=== PATIENT | male | born 1950 | race Caucasian/White ===

== ENCOUNTER → 2019-03-11 | Outpatient (CLI) | payer OTHER ==
--- NOTE | 2019-03-11 15:21 | 2DMMODE ---
[address] [address] D/M-MODE ECHOCARDIOGRAM Name: JULITA TURCIOS RAMSES Room #: REG [facility]#: [id number] Admission: 03/11/19 Attend Phys: Ken Molina MD Discharge: Date of : 46 Report #: [id number] THIS REPORT FOR: //name// APPROVED REPORT Study performed: 03/11/2019 14:18:52 EXAM: Comprehensive 2D, Doppler, and color-flow Echocardiogram Patient Location: Out-Patient Room #: Echo lab 2 Status: routine BSA: 2.21 HR: 69 bpm BP: 126/76 mmHg Rhythm: NSR Other Information Study Quality: Good Indications CAD 2D Dimensions IVC: 18.00 mm Volumes Left Atrial Volume (Systole) LA ESV Index: 30.00 mL/m2 Tricuspid Valve PA Pressure: 32.00 mmHg Left Ventricle The left ventricle is normal size. There is normal LV segmental wall motion. There is normal left ventricular wall thickness. Left ventricular systolic function is low-normal. LVEF is 50-55%. Grade I - abnormal relaxation pattern. Right Ventricle The right ventricle is normal size. The right ventricular systolic function is normal. Atria The left atrium size is normal. The right atrium size is normal. [address] [address] 2 D/M-MODE ECHOCARDIOGRAM Name: JULITA TURCIOS Room #: REG [facility]#: [id number] Admission: 03/11/19 Attend Phys: Ken Molina MD Discharge: Date of : 46 Report #: [id number] Aortic Valve The Aortic valve is sclerotic. No aortic regurgitation is present. There is no aortic valvular stenosis. Mitral Valve The mitral valve is normal in structure. Mild mitral regurgitation. No evidence of mitral valve stenosis. Tricuspid Valve The tricuspid valve is normal in structure. There is mild tricuspid regurgitation. Estimated PAP 32 mmHg. There is mild pulmonary hypertension. Pulmonic Valve The pulmonary valve is normal in structure. There is no pulmonic valvular regurgitation. Great Vessels The aortic root is normal in size. IVC is normal in size and collapses >50% with inspiration. Pericardium There is no pericardial effusion. <Conclusion> The left ventricle is normal size. There is normal left ventricular wall thickness. Left ventricular systolic function is low-normal. Grade I - abnormal relaxation pattern. The right ventricle is normal size. The left atrium size is normal. The Aortic valve is sclerotic. Mild mitral regurgitation. There is mild tricuspid regurgitation. Estimated PAP 32 mmHg. <ELECTRONICALLY SIGNED> By: Yony Gray MD 03/11/19 1520 1520 1520 Yony Gray MD /INF
== END ==
LOC: CV 09:50
DX: I25.89 Other forms of chronic ischemic heart disease (principal); I25.10 Atherosclerotic heart disease of native coronary artery without angina pectoris; I08.1 Rheumatic disorders of both mitral and tricuspid valves